=== PATIENT | female | born 1955 | race Caucasian/White ===

== ENCOUNTER → 2017-01-04 | Outpatient (CLI) | payer OTHER ==
[~2017-01-04] MED LIST: ALBU6.7H INH; ARAV10TA PO; ASPI81TA82 PO; ATEN-102 PO; ATOR40TA16 PO; BACL20; CLON.1 PO; COLE625 PO; DOXY100T PO; ESTR2TAB PO; ESTR42.5V PV; HYDR-3534 PO; LEFL20TA11 PO; LEVO137T2 PO; MELO-1 PO; MOBI7.5T PO; OMEP20TA PO; PRED20 PO; PRIS50TA PO; PROZ20CA11 PO; TIZA2TAB PO; TOPA100T8 PO; VENTAER INH; ZOLP10TA3 PO
[2017-01-04 08:29] LABS: RHEUMATOID FACTOR TRIGGER LESS THAN 10.0 IU/ML (0.0-14.9)
[2017-01-04 08:38] LABS: CORTISOL 24.2 MCG/DL
[2017-01-04 08:53] LABS: BICARBONATE 22.6 MEQ/L (21.0-32.0); FOLLICLE STIMULATING HORMONE 41.9 mIU/mL; FREE T3 2.37 PG/ML (2.18-3.98); FREE T4 1.1 NG/DL (0.76-1.46); INDIRECT BILIRUBIN 0.1 MG/DL (0.0-0.8); LUTEINIZING HORMONE 30.7 mIU/mL; MAGNESIUM 2.1 MG/DL (1.5-2.5); POTASSIUM 3.8 MEQ/L (3.5-5.1); TOTAL BILIRUBIN ADULT 0.2 MG/DL (0.2-1.0); TOTAL PROTEIN SPE 7.7 GM/DL (6.0-7.6); URIC ACID 3.8 MG/DL (2.6-6.0)
[2017-01-05 04:52] LABS: GROWTH HORMONE 0.81 ng/mL (0.01 - 3.61)
[2017-01-06 17:26] LABS: ALBUMIN SPE 4.76 GM/DL (3.50-5.00); ALPHA 1 GLOBULIN 0.23 GM/DL (0.11-0.29); ALPHA 2 GLOBULIN 0.85 GM/DL (0.22-1.00); BETA GLOBULINS (SPE) 0.72 GM/DL (0.53-1.03)
[2017-01-06 17:51] LABS: DEHYDROEPIANDROSTERONE SULFATE 33 mcg/dL (8-188)
[2017-01-06 23:53] LABS: ADRENOCORTICOTROPHIC 18 pg/mL (6-50); THYROGLOB ABS 76 IU/mL (< OR = 1); THYROGLOBULN 1.3 ng/mL (())
[2017-01-07 13:52] LABS: IGF ZSCORE FEMALE -1.8 SD (-2.0 - +2.0); IGF ZSCORE MALE ND (()); IGF-1 GC/MS 53 ng/mL (50-317)
== END ==
LOC: CLAB 07:08
PROVIDERS: ATTEND Internal Medicine Endocrinology, Diabetes & Metabolism
DX: E11.40 Type 2 diabetes mellitus with diabetic neuropathy, unspecified (principal); D89.89 Other specified disorders involving the immune mechanism, not elsewhere classified; F17.201 Nicotine dependence, unspecified, in remission; E06.3 Autoimmune thyroiditis; E03.9 Hypothyroidism, unspecified; E04.9 Nontoxic goiter, unspecified; D35.2 Benign neoplasm of pituitary gland; E55.9 Vitamin D deficiency, unspecified; Z78.0 Asymptomatic menopausal state
CPT/HCPCS: 80048; 80076; 82024; 82306; 82533; 82607; 82627; 82747; 82985; 83001; 83002; 83003; 83519; 83735; 83930; 83935; 83970; 84100; 84146; 84165; 84305; 84432; 84439; 84443; 84481; 84550; 85652; 86038; 86140; 86225; 86376; 86430; 86800

== ENCOUNTER → 2017-03-14 | Outpatient (CLI) | payer OTHER ==
[2017-03-14 07:36] LABS: AUTOMATED NEUTROPHIL # 4.5 TH/MM3 (1.8-7.7); BASOPHIL # 0.1 TH/MM3 (0-0.2); BASOPHIL % 0.8 % (0.0-2.0); EOSINOPHIL # 0.4 TH/MM3 (0-0.4); EOSINOPHIL % 4.4 % (0.0-4.0); HEMATOCRIT 41.6 % (35.0-46.0); HEMO FLAGS DIFF FINAL; LYMPH % 29.8 % (9.0-44.0); LYMPHOCYTE # 2.4 TH/MM3 (1.0-4.8); MEAN CELL VOLUME 91.2 FL (80.0-100.0); MEAN CORPUSCULAR HEMOGLOBIN 29.8 PG (27.0-34.0); MEAN CORPUSCULAR HGB CONC 32.7 % (32.0-36.0); MONO % 10.5 % (0.0-8.0); NEUT % 54.5 % (16.0-70.0); PLATELET COUNT 261 TH/MM3 (150-450); RED BLOOD COUNT 4.56 MIL/MM3 (4.00-5.30); RED CELL DISTRIBUTION WIDTH 13.3 % (11.6-17.2); WHITE BLOOD COUNT 8.2 TH/MM3 (4.0-11.0)
[2017-03-14 07:59] LABS: ANION GAP 9 MEQ/L (5-15); AST (GOT) 18 U/L (15-37); BICARBONATE 24.5 MEQ/L (21.0-32.0); BLOOD UREA NITROGEN 15 MG/DL (7-18); CHLORIDE 110 MEQ/L (98-107); GLOMERULAR FILTRATION RATE 83 ML/MIN (>89); GLUCOSE,FASTING 107 MG/DL (74-99); POTASSIUM 3.9 MEQ/L (3.5-5.1); SODIUM (NA) 143 MEQ/L (136-145)
[2017-03-14 08:00] LABS: ALT (GPT) 27 U/L (10-53)
[2017-03-14 08:02] LABS: ALKALINE PHOSPHATASE 59 U/L (45-117); HDL CHOLESTEROL 50.1 MG/DL (40.0-60.0); LDL CHOLESTEROL 110 MG/DL (0-99); TOTAL BILIRUBIN ADULT 0.3 MG/DL (0.2-1.0)
[2017-03-14 11:41] LABS: HEMOGLOBIN A1a 1.2 %; HEMOGLOBIN A1b 1.6 %; HEMOGLOBIN Ao 85.7 %
== END ==
LOC: CLAB 07:12
PROVIDERS: ATTEND Family Medicine
DX: E78.2 Mixed hyperlipidemia (principal); M05.80 Other rheumatoid arthritis with rheumatoid factor of unspecified site; R73.9 Hyperglycemia, unspecified; E05.00 Thyrotoxicosis with diffuse goiter without thyrotoxic crisis or storm
CPT/HCPCS: 36415; 80053; 80061; 83036; 85025

== ENCOUNTER → 2017-05-18 | Outpatient (CLI) | payer OTHER ==
[~2017-05-18] MED LIST changes: +ATEN25TA PO; +BACL20TA PO; +BACT800T5 PO; +CLON0.1T PO; +TOPI1CAP22 PO
[2017-05-18 07:38] LABS: BACTERIA, URINE OCC /hpf; BLOOD, URINE NEG (NEG); GLUCOSE,URINE NEG (NEG); KETONE, URINE NEG (NEG); MUCUS URINE FEW /lpf (OCC); NITRITE,URINE NEG (NEG); SQUAMOUS EPITHELIAL CELL URINE 2 /hpf (0-5); URINE COLOR YELLOW (YELLW/STRAW)
[2017-05-18 08:15] LABS: FREE T3 2.81 PG/ML (2.18-3.98); FREE T4 1.23 NG/DL (0.76-1.46); HDL CHOLESTEROL 51.4 MG/DL (40.0-60.0)
[2017-05-20 23:52] LABS: THYROGLOB ABS 71 IU/mL (< OR = 1)
== END ==
LOC: CLAB 07:02
PROVIDERS: ATTEND Family Medicine
DX: E78.5 Hyperlipidemia, unspecified (principal); I70.209 Unspecified atherosclerosis of native arteries of extremities, unspecified extremity; D89.89 Other specified disorders involving the immune mechanism, not elsewhere classified; E11.40 Type 2 diabetes mellitus with diabetic neuropathy, unspecified; E04.9 Nontoxic goiter, unspecified; E55.9 Vitamin D deficiency, unspecified; E06.3 Autoimmune thyroiditis; E03.9 Hypothyroidism, unspecified; D35.2 Benign neoplasm of pituitary gland; F17.200 Nicotine dependence, unspecified, uncomplicated; Z78.0 Asymptomatic menopausal state
CPT/HCPCS: 80061; 81001; 82306; 84439; 84443; 84481; 86376; 86800

== ENCOUNTER 2017-06-14 17:12 | Emergency (ER) | payer OTHER ==
[~2017-06-14] VITALS: Ht 157.5 cm; Wt 65.2 kg
[~2017-06-14 17:12] MED LIST changes: -ATEN25TA PO; -BACL20TA PO; -BACT800T5 PO; -CLON0.1T PO; -TOPI1CAP22 PO
[2017-06-14 17:35] VITALS: BP 134/63; PULSE 67; RESP 18; TEMP 97.6; O2SAT 97
[2017-06-14 17:46] LABS: BLOOD, URINE NEG (NEG); GLUCOSE,URINE NEG (NEG); KETONE, URINE NEG (NEG); NITRITE,URINE NEG (NEG)
[2017-06-14] MEDS ORDERED: CLON0.1T PO (18:12)
[2017-06-14] MEDS ORDERED: ATEN25TA PO (18:12)
[2017-06-14] MEDS ORDERED: ZOLP10TA3 PO (18:12)
[2017-06-14] MEDS ORDERED: BACL20TA PO (18:12)
[2017-06-14] MEDS ORDERED: TOPI1CAP22 PO (18:12)
[2017-06-14] MEDS ORDERED: LEVO137T2 PO (18:12)
[2017-06-14] MEDS ORDERED: HYDR-3534 PO (18:12)
[2017-06-14 18:25] LABS: BACTERIA, URINE MOD /hpf; METHOD OF COLLECTION CLEAN CATCH; RBC, URINE 0-3 /hpf (0-3); SQUAMOUS EPITHELIAL CELL URINE > 8 /hpf (0-5); URINE COLOR YELLOW (YELLW/STRAW); WBC, URINE 0-2 /hpf (0-5)
[2017-06-14 18:26] LABS: COMMENT (UR) CULTURE INDICATED; CULTURE IF INDICATED CULTURE INDICATED
[2017-06-14] MEDS ORDERED: BACT800T5 PO (18:56)
--- NOTE | 2017-06-14 18:59 | PD ---
HPI Chief Complaint: Complaint Time Seen by Provider: 18:41 Travel History International Travel<30 days: No Contact w/Intl Traveler<30days: No Traveled to known affect area: No History of Present Illness HPI 62-year-old female presents to the ED for evaluation of "a few days" history of dysuria, streaky blood on the paper after wiping. She denies abdominal pain, back pain, nausea, vomiting, fever, chills, vaginal discharge. She denies any high risk behavior. States this symptoms are similar to previous episodes of UTI. No treatment attempted at home. PFSH Past Medical History Cancer: No Cardiovascular Problems: No Diabetes: No Diminished Hearing: No Endocrine: No Gastrointestinal Disorders: Yes ( ANAL FISSURE, ESOPH. STRICTURE, POLYP HX, GERD) Glaucoma: No Genitourinary: Yes (STRESS INCONTINENCE) Hepatitis: No Hiatal Hernia: No Hypertension: No Immune Disorder: No Musculoskeletal: Yes (ARTHRITIS, LOW BACK PAIN) Neurologic: No Psychiatric: No Reproductive: No Respiratory: Yes Thyroid Disease: No ?: Not Past Surgical History Abdominal Surgery: Yes (APPENDECTOMY, CHOLECYSTECTOMY) AICD: No Appendectomy: Yes Cholecystectomy: Yes Genitourinary Surgery: Yes (BLADDER SLING X 2) Gynecologic Surgery: Yes (HYSTERECTOMY) Hysterectomy: Yes (AT 27 YEARS OF AGE) Joint Replacement: No Pacemaker: No Other Surgery: Yes Social History Alcohol Use: Yes (ONCE WEEKLY) Tobacco Use: Yes (1/2 PACK DAILY) Substance Use: No Allergies-Medications (Allergen,Severity, Reaction): Coded Allergies: No Known Allergies (Verified , 06/14/17) Reported Meds & Prescriptions Reported Meds & Active Scripts Active Bactrim DS (Sulfamethoxazole-Trimethoprim) 800-160 Mg Tab 1 Tab PO BID Reported Lortab (Hydrocodone-Acetaminophen) 7.5-325 Mg Tab 1 Tab PO Q6H PRN Atenolol 25 Mg Tab 12.5 Mg PO BID Levothyroxine (Levothyroxine Sodium) 137 Mcg Tab 137 Mcg PO BID Topiramate ER (Topiramate) 100 Mg Cap 100 Mg PO HS Baclofen 20 Mg Tab 20 Mg PO TID Clonidine (Clonidine HCl) 0.1 Mg Tab 0.1 Mg PO HS Zolpidem (Zolpidem Tartrate) 10 Mg Tab 10 Mg PO HS Meloxicam 15 Mg Tab 15 Mg PO DAILY Pristiq 24 HR (Desvenlafaxine ER 24 HR) 50 Mg Tab 50 Mg PO DAILY Physical Exam Narrative GENERAL: Well-nourished, well-developed nontoxic-appearing white female in no acute distress.. SKIN: Focused skin assessment warm/dry. HEAD: Normocephalic. EYES: No scleral icterus. No injection or drainage. NECK: Supple, trachea midline. No JVD or lymphadenopathy. CARDIOVASCULAR: Regular rate and rhythm without murmurs, gallops, or rubs. RESPIRATORY: Breath sounds equal bilaterally. No accessory muscle use. GASTROINTESTINAL: Abdomen soft, non-tender, nondistended. No suprapubic tenderness. Active bowel sounds. MUSCULOSKELETAL: No cyanosis, or edema. BACK: Nontender without obvious deformity. No CVA tenderness. Data Data Last Documented VS Vital Signs Date Time Temp Pulse Resp B/P (MAP) Pulse Ox O2 Delivery O2 Flow Rate FiO2 06/14/17 17:35 97.6 67 18 134/63 (86) 97 Orders Orders Urinalysis - C+S If Indicated (06/14/17 17:37) Urine Culture (06/14/17 17:40) Sulfamet-Trimeth Ds 800-160 Mg (Bactrim (06/14/17 19:00) Phenazopyridine (Pyridium) (06/14/17 19:00) Labs Laboratory Tests Test 06/14/17 17:40 Urine Collection Type CLEAN CATCH Urine Color YELLOW Urine Turbidity CLEAR Urine pH 6.0 Urine Specific [place] 1.021 Urine Protein NEG mg/dL Urine Glucose (UA) NEG mg/dL Urine Ketones NEG mg/dL Urine Occult Blood NEG Urine Nitrite NEG Urine Bilirubin NEG Urine Leukocyte Esterase NEG Urine RBC 0-3 /hpf Urine WBC 0-2 /hpf Urine Squamous Epithelial Cells > 8 /hpf Urine Bacteria MOD /hpf Microscopic Urinalysis Comment CULTURE INDICATED Urine Collection Time 17:40 [facility] Medical Decision Making Medical Screen Exam Complete: Yes Emergency Medical Condition: Yes Differential Diagnosis Cystitis versus hemorrhagic cystitis versus pyelonephritis versus other Narrative Course 62-year-old female presents to the ED for evaluation of "a few days" history of dysuria, streaky blood on the paper after wiping. She denies abdominal pain, back pain, nausea, vomiting, fever, chills, vaginal discharge. She denies any high risk behavior. States this symptoms are similar to previous episodes of UTI. Vitals reviewed. Physical exam reveals a nontoxic-appearing white female in no acute distress. Abdominal exam unremarkable. No CVA tenderness. UA with moderate bacteria. Culture pending. This is cystitis. Patient is prescribed Bactrim DS twice a day 3 days and a few doses of Pyridium. First doses administered in the ED. Patient's instructed to take the medication as prescribed and will follow up with the primary care provider. She is agreeable with the plan. She is stable and discharged home. Diagnosis Primary Impression: Acute cystitis Qualified Codes: N30.00 - Acute cystitis without hematuria Referrals: Primary Care Physician Patient Instructions: General Instructions, Urinary Tract Infection in Women ( ED) Additional Instructions: Rest, hydrate. Take all antibiotics as prescribed, even if her symptoms resolve. You may use an [id number] medication called AZO to reduce spasming of the bladder. This medication is known to turn the urine bright orange. Follow-up with primary care provider. Return to the ED for any urgent or emergent medical condition. Med/Other Pt SpecificInfo: Prescription(s) given Scripts Sulfamethoxazole-Trimethoprim (Bactrim DS) 800-160 Mg Tab 1 TAB PO BID for Infection, #6 TAB 0 Refills Prov: Esthela Vail MD 06/14/17 Disposition: 01 DISCHARGE HOME Condition: Stable Aarti Mckenna Jun 14, 2017 18:59
[2017-06-14] MEDS ORDERED: PHENAZOPYRIDINE HCL 200 MG TAB PO ONE (19:00)
[2017-06-14] MEDS ORDERED: SULFAMETHOXAZOLE-TRIMETHOPRIM DS 800-160 MG TAB PO ONE (19:00)
== END 2017-06-14 19:05 | disposition home or self-care (01) ==
LOC: PHED 17:12 → PHEFT 19:05
DX: N30.00 Acute cystitis without hematuria (principal); F17.210 Nicotine dependence, cigarettes, uncomplicated; B96.20 Unspecified Escherichia coli [E. coli] as the cause of diseases classified elsewhere
CPT/HCPCS: 81001; 87077; 87086; 87186; 99283